=== PATIENT | female | born 1995 | race African-American/Black ===

== ENCOUNTER → 2019-05-01 14:27 | Emergency (ER) | payer OTHER ==
--- NOTE | 2019-05-01 17:08 | ED ---
Dizziness - HPI Summary HPI Summary: Pt is a 24 y/o F presenting to the ED with a chief complaint of weakness first onset the night of 04/28/19. She states that when she tries to fall asleep, she experiences weakness and numbness in her extremities and then suddenly jolts awake. She denies feeling like shes falling, CP, SOB, dizziness, weight loss or gain, or change in appetite. LNMP 04/20/19. - History Of Current Complaint Chief Complaint: EDGeneral Stated Complaint: WEAKNESS, NUMBESS WHILE SLEEPING PER PT Time Seen by Provider: 05/01/19 16:41 Hx Obtained From: Patient Onset/Duration: Resolved, Suddenly Timing: Intermittent Episode Lasting - hours Severity Initially: Moderate Character: Weak Aggravating Factor(s): Other - lying down to go to sleep Alleviating Factor(s): Nothing Associated Signs And Symptoms: Positive: Other: - night time numbness/weakness in extremities. Negative: Chest Pain, SOB, Change In Diet - Allergies/Home Medications Allergies/Adverse Reactions: Allergies Allergy/AdvReac Type Severity Reaction Status Date / Time No Known Allergies Allergy Verified 05/01/19 14:37 PMH/Surg Hx/FS Hx/Imm Hx Previously Healthy: Yes Endocrine/Hematology History: Reports: Hx Diabetes - pre-diabetic Cardiovascular History: Denies: Hx Hypertension Respiratory History: Reports: Hx Asthma - Immunization History Immunizations Up to Date: Yes Infectious Disease History: No Infectious Disease History: Denies: Traveled Outside the [place] in Last 30 Days - Family History Known Family History: Negative: Cardiac Disease - Social History Alcohol Use: Occasionally Hx Substance Use: No Substance Use Type: Reports: None Hx Tobacco Use: No Smoking Status (MU): Never Smoked Tobacco Review of Systems Negative: Other - weight loss/gain, change in appetite Negative: Chest Pain Negative: Shortness Of Breath Neurological: Negative - dizziness Positive: Weakness, Numbness All Other Systems Reviewed And Are Negative: Yes Physical Exam - Summary Physical Exam Summary: Appearance: well appearing, no pain distress Skin: warm, dry, reflects adequate perfusion Head/face: normal Eyes: EOMI, STONEY ENT: mucous membranes moist Neck: supple, non-tender Respiratory: CTA, breath sounds present Cardiovascular: RRR, pulses symmetrical Abdomen: non-tender, soft Bowel Sounds: present Musculoskeletal: normal, strength/ROM intact Neuro: normal, sensory motor intact, A&Ox3 Triage Information Reviewed: Yes Vital Signs On Initial Exam: Initial Vitals Temp Pulse Resp BP Pulse Ox 98.2 F 78 18 105/69 98 05/01/19 14:30 05/01/19 14:30 05/01/19 14:30 05/01/19 14:30 05/01/19 14:30 Vital Signs Reviewed: Yes Diagnostics - Vital Signs Vital Signs Temp Pulse Resp BP Pulse Ox 05/01/19 14:30 98.2 F 78 18 105/69 98 - Laboratory Lab Statement: Any lab studies that have been ordered have been reviewed, and results considered in the medical decision making process. Dizzy Course/Dx - Course Course Of Treatment: Patient with concern for prediabetes however her blood sugar here is actually slightly low. She is tall and thin and has no habitus consistent with the diagnosis of prediabetes. She was given a meal and juice here. She has no symptoms otherwise. Melatonin will be prescribed for bedtime use as needed. She'll follow-up with [facility]. - Diagnoses Differential Diagnosis/HQI/PQRI: Anxiety, Hyperventilation, Medication Reaction - Restless leg syndrome, Vasovagal Reaction, Other Provider Diagnoses: Hypoglycemia, Insomnia Discharge - Sign-Out/Discharge Documenting (check all that apply): Patient Departure Patient Received Moderate/Deep Sedation with Procedure: No - Discharge Plan Condition: Improved Disposition: HOME Prescriptions: Melatonin/Pyridoxine HCl (B6) [Melatonin 3 mg Tablet] 1 - 2 tab PO BEDTIME PRN # 30 tablet PRN Reason: Insomnia Patient Education Materials: Non-diabetic Hypoglycemia (ED) Referrals: [facility] [Outside] Additional Instructions: Make sure you eat regularly. Call tomorrow to schedule follow-up with the [facility]. Return if worse, weakness, new symptoms or other concerns. - Billing Disposition and Condition Condition: IMPROVED Disposition: Home - Attestation Statements Document Initiated by Scribe: Yes Documenting Scribe: Jenise Burks Provider For Whom Halima is Documenting (Include Credential): Ángel Najera MD. Scribe Attestation: Jenise Domingo, scribed for Ángel Najera MD. on 05/01/19 at 1803. Scribe Documentation Reviewed: Yes Provider Attestation: The documentation as recorded by the scribe, Jenise Burks accurately reflects the service I personally performed and the decisions made by me, Ángel Najera MD. Status of Scribe Document: Viewed
[2019-05-01 17:26] LABS: Urine Appearance Turbid; Urine Bilirubin Negative (Negative); Urine Blood Negative (Negative); Urine Color Yellow; Urine Glucose Negative (Negative); Urine Ketones Negative (Negative); Urine Nitrite Negative (Negative); Urine Protein Negative (Negative); Urine Specific Gravity 1.021 (1.010-1.030); Urine Urobilinogen Negative (Negative)
[2019-05-01 17:57] VITALS: BP 108/64
== END | disposition home or self-care (01) ==
LOC: ED 14:27
DX: E16.2 Hypoglycemia, unspecified (principal); G47.00 Insomnia, unspecified
CPT/HCPCS: 81003; 99282